=== PATIENT | female | born 1975 | race Caucasian/White ===

== ENCOUNTER 2017-02-06 23:50 | Emergency (ER) | payer SELFPAY ==
[~2017-02-06] VITALS: Ht 167.6 cm; Wt 88.0 kg
[2017-02-07] MEDS ORDERED: HYDROCODONE/APAP 7.5/325MG 1 TAB TABLET PO ONE (02:45)
[2017-02-07] MEDS ORDERED: BACITRACIN ZINC OINT UDPKT TOP ONE (02:45)
[2017-02-07] MEDS ORDERED: TETANUS, DIPHTHERIA, PERTUSSIS VAC/PF 0.5ML (>7YR OLD) IM ONE (02:45)
[2017-02-07] MEDS ORDERED: LIDOCAINE HCL 1% 20ML VIAL (Pyxis) INJ MC ONE (02:45)
[2017-02-07 06:45] VITALS: BP 122/74
== END 2017-02-07 07:00 | disposition home or self-care (01) ==
LOC: ER 23:50
DX: S01.511A Laceration without foreign body of lip, initial encounter (principal); S00.83XA Contusion of other part of head, initial encounter; Y04.0XXA Assault by unarmed brawl or fight, initial encounter; Y93.89 Activity, other specified; Y92.488 Other paved roadways as the place of occurrence of the external cause
CPT/HCPCS: 12011; 90471; 90715; 99283; J3490; Z7610

== ENCOUNTER 2017-02-11 12:08 | Emergency (ER) | payer SELFPAY ==
[~2017-02-11] VITALS: Ht 162.6 cm; Wt 89.0 kg
[2017-02-11 12:09] VITALS: BP 125/72
[2017-02-11] MEDS ORDERED: BACITRACIN ZINC OINT UDPKT TOP ONE (13:00)
== END 2017-02-11 13:16 | disposition home or self-care (01) ==
LOC: ER 12:51
DX: S01.511D Laceration without foreign body of lip, subsequent encounter (principal); X58.XXXD Exposure to other specified factors, subsequent encounter; Y93.89 Activity, other specified; Y99.8 Other external cause status; Y92.89 Other specified places as the place of occurrence of the external cause; Z98.890 Other specified postprocedural states
CPT/HCPCS: 99282; X7700; Z7610